=== PATIENT | female | born 1955 | race Caucasian/White ===

== ENCOUNTER 2018-05-03 01:51 | Emergency (ER) | payer BC ==
[2018-05-03] MEDS ORDERED: NS 0.9% 1000 ML* 1,000 ML IV ONE (03:28)
[2018-05-03] MEDS ORDERED: Ketorolac INJ* 30 MG/ML 1 ML VIAL IV PUSH ONE ×2 (03:29→09:37)
[2018-05-03 04:03] LABS: ABS Basophils 0.1 10^3/ul (0-0.2); ABS Eosinophils 0.4 10^3/ul (0-0.6); ABS Lymphocytes 1.2 10^3/ul (1.0-4.8); ABS Monocytes 1.3 10^3/ul (0-0.8); ABS Neutrophils 9.2 10^3/ul (1.5-7.7); ABS Nucleated RBC 0 10^3/ul; Eosinophil % 3.1 % (0-6); Hematocrit 30 % (35-47); Lymphocyte % 10.1 % (25-47); Mean Corpuscular HGB Conc 30 g/dl (31-36); Mean Corpuscular Hemoglobin 23 pg (27-31); Mean Corpuscular Volume 75 fL (80-97); Mean Platelet Volume 8.1 um3 (7.4-10.4); Nucleated Red Blood Cells % 0; Platelet Count 321 10^3/ul (150-450); Red Blood Count 3.98 10^6/ul (4.00-5.40); Red Cell Distribution Width 19 % (10.5-15); White Blood Count 12.3 10^3/ul (3.5-10.8)
[2018-05-03 04:15] LABS: EGFR Non-African American 54.6 (>60)
[2018-05-03 04:22] LABS: Urine Appearance Cloudy; Urine Blood 1+ (Negative); Urine Color Yellow; Urine Ketones Negative (Negative); Urine Protein Negative (Negative); Urine Red Blood Cell 3+(>10/hpf) (Absent); Urine Specific Gravity 1.011 (1.010-1.030); Urine Urobilinogen Negative (Negative); Urine White Blood Cell 1+(6-10/hpf) (Absent)
--- NOTE | 2018-05-03 05:26 | ED ---
Abdominal Pain/Female - HPI Summary HPI Summary: This patient is a 62 year old F presenting to [facility] accompanied by with a chief complaint of left flank pain that began yesterday and worsened today. The patient rates the pain 7/10 in severity. Symptoms aggravated by position. Symptoms alleviated by nothing. Patient reports back pain and bruising. Patient denies dysuria, hematuria, headache, double vision, ear ache, sore throat, CP, bilateral LE edema, anxiety, and depression. Patient reports having multiple kidney stones beginning one year ago. - History of Current Complaint Chief Complaint: EDFlankPain Stated Complaint: FLANK PAIN Hx Obtained From: Patient ?: No Onset/Duration: Sudden Onset, Lasting Days, Still Present Timing: Constant Severity Initially: Moderate Severity Currently: Moderate Pain Intensity: 7 Pain Scale Used: 0-10 Numeric Location: Flank Radiates: No Aggravating Factor(s): Other: - Position Alleviating Factor(s): Nothing Associated Signs and Symptoms: Positive: Other: - Positive back pain and bruising. Negative dysuria, hematuria, headache, double vision, ear ache, sore throat, CP, bilateral LE edema, anxiety, and depression Allergies/Adverse Reactions: Allergies Allergy/AdvReac Type Severity Reaction Status Date / Time Penicillins Allergy Rash Verified 05/03/18 02:02 Home Medications: Home Medications Butalb/Acetamin/Caff TAB* [Fioricet TAB*] 1 tab PO Q6H PRN 05/03/18 [History Confirmed 05/03/18] Clobetasol 0.05% OINT* 1 applic TOPICAL BID 05/03/18 [History Confirmed 05/03/18 ] Famotidine TAB* [Pepcid 20 MG TAB*] 40 mg PO DAILY 05/03/18 [History Confirmed 05/03/18] Metamucil LURDES* 0.52 g PO DAILY 05/03/18 [History Confirmed 05/03/18] Mometasone/Formoter 100/5 MDI* [Dulera 100/5 MDI*] 1 puff INH BID 05/03/18 [ History Confirmed 05/03/18] Simvastatin TAB(NF) [Zocor(NF)] 20 mg PO BEDTIME 05/03/18 [History Confirmed ] amLODIPine TAB* 5 mg PO DAILY 05/03/18 [History Confirmed 05/03/18] PMH/Surg Hx/FS Hx/Imm Hx Previously Healthy: No History: Reports: Hx Kidney Stones Musculoskeletal History: Reports: Hx Back Problems Infectious Disease History: No Infectious Disease History: Denies: Traveled Outside the [place] in Last 30 Days - Family History Known Family History: Negative: Cardiac Disease, Diabetes - Social History Occupation: Employed Full-time Lives: With Family Alcohol Use: None Hx Substance Use: No Substance Use Type: Reports: None Hx Tobacco Use: No Smoking Status (MU): Never Smoked Tobacco Review of Systems Negative: Fever Negative: Blurred Vision Negative: Sore Throat Negative: Chest Pain Negative: Shortness Of Breath Positive: Other - Positive L flank pain Negative: dysuria, hematuria Positive: Other - Positive back pain. Negative: Edema Positive: Bruising Negative: Headache Negative: Anxious, Depressed All Other Systems Reviewed And Are Negative: No Physical Exam - Summary Physical Exam Summary: Appearance: Alert, conversive, nontoxic appearing Skin: Warm, dry, no mottling, no rashes, no contusions HEENT: EOMI, PERRL, moist mucous membranes Neck: No masses on the neck, supple Respiratory: Clear to auscultation, breath sounds present, no rales, no rhonchi , no wheezes Cardiovascular: RRR, pulses are symmetrical in both lower and upper extremities Abdomen: Soft, mild LLQ tenderness Bowel Sounds: Present Musculoskeletal: No CVA tenderness, no obvious deformity, moving all extremities in a grossly normal manner Neurological: A&Ox3, CN II-XII Intact, moving all extremities symmetrically Psychiatric: Normal affect and mood Triage Information Reviewed: Yes Vital Signs On Initial Exam: Initial Vitals Temp Pulse Resp BP Pulse Ox 99.0 F 96 16 150/97 98 05/03/18 01:58 05/03/18 01:58 05/03/18 01:58 05/03/18 01:58 05/03/18 01:58 Vital Signs Reviewed: Yes Diagnostics - Vital Signs Vital Signs Temp Pulse Resp BP Pulse Ox 05/03/18 01:58 99.0 F 96 16 150/97 98 - Laboratory Lab Results: Lab Results 05/03/18 05/03/18 05/03/18 Range/Units 03:50 03:50 04:04 WBC 12.3 H (3.5-10.8) 10^3/ul RBC 3.98 L (4.00-5.40) 10^6/ul Hgb 9.0 L (12.0-16.0) g/dl Hct 30 L (35-47) % MCV 75 L (80-97) fL MCH 23 L (27-31) pg MCHC 30 L (31-36) g/dl RDW 19 H (10.5-15) % Plt Count 321 (150-450) 10^3/ul MPV 8.1 (7.4-10.4) um3 Neut % (Auto) 75.1 (38-83) % Lymph % (Auto) 10.1 L (25-47) % [place] % (Auto) 10.6 H (0-7) % Eos % (Auto) 3.1 (0-6) % Baso % (Auto) 1.1 (0-2) % Absolute Neuts (auto) 9.2 H (1.5-7.7) 10^3/ul Absolute Lymphs (auto) 1.2 (1.0-4.8) 10^3/ul Absolute Monos (auto) 1.3 H (0-0.8) 10^3/ul Absolute Eos (auto) 0.4 (0-0.6) 10^3/ul Absolute Basos (auto) 0.1 (0-0.2) 10^3/ul Absolute Nucleated RBC 0 10^3/ul Nucleated RBC % 0 Polychromasia 1+ Hypochromasia 1+ Anisocytosis 1+ Sodium 137 (135-145) mmol/L Potassium 3.9 (3.5-5.0) mmol/L Chloride 103 (101-111) mmol/L Carbon Dioxide 29 (22-32) mmol/L Anion Gap 5 (2-11) mmol/L BUN 17 (6-24) mg/dL Creatinine 1.02 H (0.51-0.95) mg/dL Est GFR ( Amer) 66.0 (>60) Est GFR (Non-Af Amer) 54.6 (>60) BUN/Creatinine Ratio 16.7 (8-20) Glucose 111 H (70-100) mg/dL Calcium 10.8 H (8.6-10.3) mg/dL Total Bilirubin 0.30 (0.2-1.0) mg/dL AST 17 (13-39) U/L ALT 10 (7-52) U/L Alkaline Phosphatase 118 H (34-104) U/L Total Protein 7.5 (6.4-8.9) g/dL Albumin 4.4 (3.2-5.2) g/dL Globulin 3.1 (2-4) g/dL Albumin/Globulin Ratio 1.4 (1-3) Urine Color Yellow Urine Appearance Cloudy Urine pH 7.0 (5-9) Ur Specific [place] 1.011 (1.010-1.030) Urine Protein Negative (Negative) Urine Ketones Negative (Negative) Urine Blood 1+ A (Negative) Urine Nitrate Negative (Negative) Urine Bilirubin Negative (Negative) Urine Urobilinogen Negative (Negative) Ur Leukocyte Esterase Trace A (Negative) Urine WBC (Auto) 1+(6-10/hpf) A (Absent) Urine RBC (Auto) 3+(>10/hpf) A (Absent) Ur Squamous Epith Cells Present A (Absent) Amorphous Crystals Present A (Absent) Urine Bacteria Absent (Absent) Urine Glucose Negative (Negative) Result Diagrams: 05/03/18 03:50 05/03/18 03:50 Lab Statement: Any lab studies that have been ordered have been reviewed, and results considered in the medical decision making process. Re-Evaluation - Re-Evaluation First Eval Re-Evaluation Time: 06:53 Change: Unchanged Comment: Discussed results and plan of care with patient Abdominal Pain Fem Course/Dx - Course Course Of Treatment: This patient is a 62 year old F presenting to [facility] accompanied by with a chief complaint of left flank pain that began yesterday and worsened today. Physical Exam Findings: mild LLQ tenderness. Bloodwork and UA obtained. In the ED course the patient was given fluids and Toradol. Patient will signed out to Dr. Bean upon shift change pending CT abdomen and pelvis and disposition. The patient is agreeable with this plan. - Diagnoses Provider Diagnoses: Kidney stone Discharge - Sign-Out/Discharge Documenting (check all that apply): Sign-Out Patient Signing out patient TO: Anselmo Bean - Upon shift change pending CT abdomen/ pelvis - Discharge Plan Referrals: No Primary Care Phys,NOPCP [Primary Care Provider] - Attestations Scribe Attestation: This is debbi Pond documenting for attending Nerissa Wylie MD. User Type: Provider with Scribe Provider Attestation: The documentation recorded by the scribe accurately reflects the service I personally performed and the decisions made by me.
--- NOTE | 2018-05-03 07:10 | ED ---
Progress - Progress Note Progress Note: 07:00- Pt received from Dr. Wylie. The Abd/Pel CT results are pending. This patient is a 62 year old F presenting to [facility] accompanied by with a chief complaint of left flank pain that began yesterday and worsened today. Physical Exam Findings: mild LLQ tenderness. Bloodwork and UA obtained. In the ED course the patient was given fluids and Toradol. Patient will signed out to Dr. Bean upon shift change pending CT abdomen and pelvis and disposition. The patient is agreeable with this plan. - Results/Orders Results/Orders: ABD/Pel CT Results IMPRESSION: 1. Severe left-sided hydronephrosis. 2 renal stones located in the left ureter one measuring approximately 1 cm in diameter is located at the level of the mid pelvis. The second stone is located at the ureter without vesical junction. This is about 7 mm in size. Multiple calcified stones are noted in the collecting system the left kidney. There is moderate perinephric stranding. 2. Right-sided hydronephrosis and hydroureter with multiple calcified stones of varying sizes. 3 mm calcified stone located in the ureter in the mid pelvis. 3. Hyperdense renal cortical cyst located in the right kidney measuring 1.6 cm. This most likely is a hemorrhagic cyst. 4. Severe thoracolumbar scoliosis treated with Saucedo hemalatha device. ED physician has reviewed this radiology report and agrees. - EKG/XRAY/CT CT: Abd/Pel CT Re-Evaluation - Re-Evaluation First Eval Re-Evaluation Time: 06:53 Change: Unchanged Comment: Discussed results and plan of care with patient Course/Dx - Course Course Of Treatment: I woke up Ms. Richards about 9 AM with the results of her CT scan showing high-grade obstructing large stones on the left with an equivocal urine. At that point her pain was beginning to return and I gave her an additional dose of Toradol as well as Cipro IV. I spoke with Dr. Mahoney economic developer for the hospitalists service at [facility] and Dr. Forbes economic developer for urology at [facility]. They accepted Ms. Richards in transfer as we have no urology service this weekend. - Diagnoses Provider Diagnoses: Kidney stone - Provider Notifications Discussed Care Of Patient With: Ceferino Mahoney MD - Hospitalist Time Discussed With Above Provider: 09:26 - Consulted with Ceferino Mahoney MD at [facility] [place] who agreed to talk to Stefano Wilkins MD ( urology). 09:39- Dr. Stefano Wilkins MD accepted to admit the pt. Instructed by Provider To: Admit As Inpatient - The hospitalist agreed to admit the pt if Stefano Wilkins MD(urologist) agrees. Discharge - Sign-Out/Discharge Documenting (check all that apply): Patient Departure - Transfer , Receiving Sign-Out Receiving patient FROM: Nerissa Wylie - Discharge Plan Condition: Stable Disposition: TRANS HIGHER LVL OF CARE FAC Referrals: No Primary Care Phys,NOPCP [Primary Care Provider] - 2 Days Additional Instructions: Return to ED for any new or worsening symptoms - Billing Disposition and Condition Condition: STABLE Disposition: Trans Higher Lvl of Care Fac
--- NOTE | 2018-05-03 07:24 | RAD ---
EXAM: CT Abdomen and Pelvis Without Intravenous Contrast CLINICAL HISTORY: 62 years old, female; Pain; Abdominal pain; Flank; Left; Prior surgery; Surgery date: 6+ months; Additional info: Left flank pain, stone protocol TECHNIQUE: Axial computed tomography images of the abdomen and pelvis without intravenous contrast. Coronal and sagittal reformatted images were created and reviewed. COMPARISON: No relevant prior studies available. FINDINGS: Lung bases: Unremarkable. No mass. No consolidation. ABDOMEN: Liver: Unremarkable. Gallbladder and bile ducts: Unremarkable. No calcified stones. No ductal dilation. Pancreas: Unremarkable. No ductal dilation. Spleen: Unremarkable. No splenomegaly. Adrenals: Unremarkable. No mass. Kidneys and ureters: Severe left-sided hydronephrosis with a calcified stone at the ureterovesical junction this measures approximately 5 mm in greatest dimension. Another calcified stone is seen in the ureter at the level of the mid pelvis. This measures 7 mm in diameter. Severe dilatation of the left pyelocalyceal system. Multiple calcified stones of varying sizes which do not appear obstructing. A 10 mm stone is seen in the left renal pelvis. There is moderate perinephric stranding.Severe right-sided hydronephrosis with multiple calcified stones located in the collecting system which are nonobstructing. The right renal pelvis is dilated. Dilatation of the ureter in which there is a small 2-3 mm calcified stone located in the mid pelvis. In the distal ureter there are multiple phleboliths. I do not see a calcified stone at the ureterovesical junction. Dense right renal cortical cyst most likely representing a hemorrhagic cyst. Stomach and bowel: No bowel obstruction. Colonic diverticulosis without evidence of acute diverticulitis. PELVIS: Appendix: No findings to suggest acute appendicitis. Bladder: Bladder is distended. No bladder wall thickening. Calcified stone located in the left ureteropelvic junction. Reproductive: Unremarkable as visualized. ABDOMEN and PELVIS: Intraperitoneal space: Unremarkable. No free air. No significant fluid collection. Bones/joints: The patient has a severe thoracolumbar scoliosis. Treated with a Saucedo rods. No acute fracture. No dislocation. Multilevel degenerative lumbar disc disease. Soft tissues: Unremarkable. Vasculature: Atheromatous changes involving abdominal aorta and iliac arteries. No aneurysmal dilatation. Large hiatal hernia. Portion the stomach is located within the thoracic cage. Lymph nodes: Unremarkable. No enlarged lymph nodes. IMPRESSION: 1. Severe left-sided hydronephrosis. 2 renal stones located in the left ureter one measuring approximately 1 cm in diameter is located at the level of the mid pelvis. The second stone is located at the ureter without vesical junction. This is about 7 mm in size. Multiple calcified stones are noted in the collecting system the left kidney. There is moderate perinephric stranding. 2. Right-sided hydronephrosis and hydroureter with multiple calcified stones of varying sizes. 3 mm calcified stone located in the ureter in the mid pelvis. 3. Hyperdense renal cortical cyst located in the right kidney measuring 1.6 cm. This most likely is a hemorrhagic cyst. 4. Severe thoracolumbar scoliosis treated with Saucedo hemalatha device. R0
[2018-05-03] MEDS ORDERED: Ciprofloxacin 400MG IVPREMIX(* 400 MG/200 ML BAG IVPB ONE (09:35)
[2018-05-03] MEDS ORDERED: Ondansetron INJ* 2 MG/ML VIAL IV ONE (11:24)
[2018-05-03 12:34] VITALS: BP 149/87
== END 2018-05-03 13:13 | disposition short-term general hospital (02) ==
LOC: ED 01:51
DX: N20.0 Calculus of kidney (principal); M54.9 Dorsalgia, unspecified; R10.84 Generalized abdominal pain
CPT/HCPCS: 36415; 74176; 80053; 81003; 81015; 85025; 87086; 96374; 96375; 99285; J0744; J1885; J2405